=== PATIENT | female | born 1970 | race Caucasian/White ===

== ENCOUNTER → 2024-08-28 16:33 | Outpatient (REF) | payer BC, SELFPAY | LOC: WDC 16:33 | PROVIDERS: ATTENDING PHYSICIAN Advanced Practice Midwife; FAMILY PHYSICIAN Internal Medicine | DX: Z12.31 Encounter for screening mammogram for malignant neoplasm of breast (principal) | CPT/HCPCS: 77063; 77067 ==

== ENCOUNTER 2025-09-18 13:03 | Emergency (ER) | payer BC, SELFPAY ==
[2025-09-18 13:06] VITALS: BP 130/92
[2025-09-18 13:48] LABS: Hematocrit 35.8 % (37.0-47.0); Hemoglobin 12.0 g/dL (12.0-16.0); Mean Corp Hgb Conc. 33.5 g/dL (33.0-37.0); Mean Corpuscular Volume 93.2 fL (81.0-99.0); Nucleated Red Blood Cells % 0 %; Platelet Count 247 10^3/uL (130-400); Red Cell Dist. Width 12.0 % (11.5-14.5)
[2025-09-18 14:02] LABS: ALT (SGPT) 29 U/L (0-35); AST (SGOT) 25 U/L (14-36); Albumin 4.4 g/dl (3.5-5.0); Alkaline Phosphatase 50 U/L (38-126); Blood Urea Nitrogen 19 mg/dl (7-17); Calcium 9.2 mg/dl (8.4-10.2); Carbon Dioxide 31 mmol/L (22-30); Chloride 101 mmol/L (98-107); Glucose 92 mg/dl (70-99); Potassium 4.5 mmol/L (3.5-5.1); Sodium 137 mmol/L (135-145); Total Protein 6.8 g/dl (6.3-8.2); eGFR > 60.00
[2025-09-18 17:56] VITALS: BMI 21.0
--- NOTE | 2025-09-18 18:24 | ED.GENMED ---
History of Present Illness
General
Chief Complaint: Headache
Source: patient
Exam Limitations: none
Time Seen by Provider: 09/18/25 17:08
Nursing documentation reviewed up to this point in time: agreed with
History of Present Illness
History of Present Illness:
Patient to the emergency department with complaint of atypical migraine. States symptoms started 4 days ago. She was initially prescribed Maxalt for her migraines but medication was changed to 'something similar'. She states she has been taking
this medication but is only getting temporary relief. She reports pain in her eyes. Denies any nausea or vomiting. She denies any weakness, dizziness. She spoke with her primary care provider today and was advised to come to the emergency
department for further evaluation. States her pain at the current time is tolerable.
Past History
Past History
ED Past Medical History: Other (Migraines)
ED Past Surgical History: None
Social History
Tobacco: Non-smoker
Alcohol: Occasional
Drug: None
Personal:
Living: with family
Family History
Family History: Negative Early CAD, CAD or Sudden
Review of Systems
Review of Systems
Allergies reviewed?: Yes
All Other Systems: ROS reviewed and negative except as documented in HPI and ROS
Constitutional: Reports no symptoms
EENT: Reports other (Eye pain with eye movement)
Respiratory: Reports no symptoms
Cardiac: Reports no symptoms
ABD/GI: Reports no symptoms
: Reports no symptoms
Musculoskeletal: Reports no symptoms
Skin: Reports no symptoms
Neurological: Reports headache
Psychiatric: Reports no symptoms
Phy Exam
General Physical Exam
General Presentation: well appearing and mild distress
General age: appears stated age
General Skin: warm and dry
General Habitus: normal
General Mental: alert
Eye Exam
Eye Exam: PERRL, EOMI, conjunctiva normal and globe normal
Cardiovascular Exam
Cardiovascular Exam: regular rate/rhythm and no edema
Neurological Exam
Neurological Exam: alert, oriented x3, CN II-XII intact, no motor deficits, no sensory deficits and speech normal
Musculoskeletal Exam
Musculoskeletal Exam: full ROM and neuro vasc intact
Skin Exam
Skin Exam: normal color, warm/dry and no rash
Psychiatric Exam
Psychiatric Exam: normal mood/affect
Course
Orders/Labs/Results
Orders:
Orders
09/18/25 13:09
Electrocardiogram (*1) Urgent
Reason for Study: Palpitations
EKG- Treatment ONCE
09/18/25 13:37
Complete Blood Count/With Diff Urgent
Comprehensive Metabolic Panel Urgent
09/18/25 17:28
CT Head W/o Iv Contrast Urgent
Comment:
Reason For Exam: atypical migraine pain
09/18/25 18:24
Ibuprofen [Motrin] 600 mg PO NOW STA
Abnormal Lab Results
09/18/25
13:37
RBC 3.84 L 10^6/uL
(4.20-5.40)
Hct 35.8 L %
(37.0-47.0)
MCH 31.3 H pg
(27.0-31.0)
Carbon Dioxide 31 H mmol/L
(22-30)
BUN 19 H mg/dl
(7-17)
09/18/25 13:37
09/18/25 13:37
Vital Signs
Initial and Last Documented VS:
Initial Vital Signs
Temp Pulse Resp BP Pulse Ox
98.2 F 70 16 130/92 100
09/18/25 13:06 09/18/25 13:06 09/18/25 13:06 09/18/25 13:06 09/18/25 13:06
Last Documented Vital Signs
Temp Pulse Resp BP Pulse Ox
98.2 F 70 16 130/92 100
09/18/25 13:06 09/18/25 13:06 09/18/25 13:06 09/18/25 13:06 09/18/25 13:06
*Radiology
Radiology exam reviewed: radiology read reviewed
*Pulse Oximetry
SaO2: 100
Oxygen Mode of Delivery: Room air
Patient hypoxic: no
*Critical Care Note
Total Time (30-74mins, 75-104mins- exclusive of procedures): Not Applicable
Update Note
Update Note:
Patient to the emergency department for evaluation of atypical migraine. States her symptoms started approximately 4 days ago. She notes pain to her eyes with extraocular movement. No vision changes. CT of head completed, no acute findings.
Neurologic exam is unremarkable. Vital signs are stable, she remains afebrile. She was given ibuprofen in the ED. Patient states that her pain is tolerable. She has a neurologist with whom she has followed with in the past. She will call on
Sunday to schedule a follow-up appointment. She is discharged home. She was given instructions on signs and symptoms to return to the emergency department and she is agreeable with this plan
ED Attending Note
-
Portions of this chart may have been created with voice recognition software.� Occasional wrong word or��sound alike� substitutions may have occurred due to the inherent limitations of voice recognition software.
Discharge Plan
Departure
Patient Disposition: Home (Routine Discharge)
Date of Disposition: 09/18/25
Time of Disposition: 18:25
Patient with high blood pressure during this ER visit?: No
Condition: Good
Covid-19: Not Applicable
Discharge Problem:
Atypical migraine
Instructions: Migraines (DC)
Referrals:
Toya Matta MD [Family Provider, Internal Medicine] - Follow up in 2-3 days
Activity Restrictions/Additional Instructions:
Please follow-up with your neurologist. Return to the emergency department immediately for any changes in/worsening of your symptoms.
Interventions
Interventions:
*Risk Screen - Suicide Last Done: 09/18/25 13:08
*Neglect/Abuse Screening Last Done: 09/18/25 13:08
Discharge Date and Time
Print Language: KENYAN
[2025-09-18 18:28] VITALS: BP 119/88
[2025-09-18] MEDS: MOTRIN 600 MG PO (18:28)
== END 2025-09-18 18:38 | disposition home or self-care (01) ==
LOC: EMR 13:03
PROVIDERS: Emergency Medicine; EMERGENCY PHYSICIAN Student in an Organized Health Care Education/Training Program; FAMILY PHYSICIAN Internal Medicine
DX: G43.009 Migraine without aura, not intractable, without status migrainosus (principal)
CPT/HCPCS: 99284; 70450; 80053; 85025; 93005